=== PATIENT | female | born 1960 | race Caucasian/White ===

== ENCOUNTER → 2023-06-08 15:25 | Outpatient (REF) | payer OTHER, SELFPAY | LOC: HWWDC 15:25 | PROVIDERS: ATTENDING PHYSICIAN Family Medicine; FAMILY PHYSICIAN Family Medicine | DX: Z12.31 Encounter for screening mammogram for malignant neoplasm of breast (principal) | CPT/HCPCS: 77063; 77067 ==

== ENCOUNTER → 2023-06-15 09:43 | Outpatient (REF) | payer OTHER, SELFPAY | LOC: WDC 09:43 | PROVIDERS: ATTENDING PHYSICIAN Family Medicine | DX: R92.8 Other abnormal and inconclusive findings on diagnostic imaging of breast (principal) | CPT/HCPCS: 76642 ==

== ENCOUNTER 2024-01-03 10:20 | Emergency (ER) | payer OTHER, SELFPAY ==
[2024-01-03 10:26] VITALS: BP 167/107
[2024-01-03 10:30] LABS: Glucose - Point of Care 100 mg/dl (70-99)
[2024-01-03 10:54] LABS: % Basophils 1.1 % (0-2); % Eosinophils 2.3 % (0-6); % Immature Granulocytes 0.4 % (0-0.5); % Monocytes 6.4 % (1.7-9.3); % Neutrophils 51.8 % (42.2-75.2); Absolute Basophils 0.1 10^3/uL (0-0.2); Absolute Eosinophils 0.2 10^3/uL (0-0.7); Absolute Lymphocytes 2.7 10^3/uL (1.2-3.4); Absolute Monocytes 0.5 10^3/uL (0.1-0.6); Absolute Neutrophils 3.6 10^3/uL (1.4-6.5); Hematocrit 42.5 % (37.0-47.0); Hemoglobin 14.7 g/dL (12.0-16.0); Mean Corp Hgb Conc. 34.6 g/dL (33.0-37.0); Mean Corpuscular Hgb 31.4 pg (27.0-31.0); Mean Corpuscular Volume 90.8 fL (81.0-99.0); Mean Platelet Volume 9.8 fL (7.4-10.4); Nucleated Red Blood Cells % 0.4 %; Platelet Count 221 10^3/uL (130-400); Red Blood Cell Count 4.68 10^6/uL (4.20-5.40); Red Cell Dist. Width 11.8 % (11.5-14.5)
[2024-01-03 10:59] LABS: Urine Albumin Negative (Neg - Trace); Urine Bilirubin Negative (Negative); Urine Character Clear (Clear); Urine Color Yellow; Urine Glucose Negative (Negative); Urine Ketone Negative (Negative); Urine Leukocyte Negative (Negative); Urine Nitrite Negative (Negative); Urine Occult Blood Negative (Negative); Urine Urobilinogen Negative (Neg - 1+)
[2024-01-03 11:06] VITALS: BP 143/94
[2024-01-03 11:07] LABS: ALT (SGPT) 30 U/L (0-35); AST (SGOT) 30 U/L (14-36); Albumin 4.6 g/dl (3.5-5.0); Alkaline Phosphatase 80 U/L (38-126); Blood Urea Nitrogen 13 mg/dl (7-17); Carbon Dioxide 27 mmol/L (22-30); Chloride 104 mmol/L (98-107); Glucose 101 mg/dl (70-99); Potassium 4.2 mmol/L (3.5-5.1); Sodium 140 mmol/L (135-145); Total Bilirubin 0.6 mg/dl (0.2-1.3); Total Protein 7.2 g/dl (6.3-8.2); eGFR > 60.00
--- NOTE | 2024-01-03 11:58 | ED.CVA ---
History of Present Illness
General
Chief Complaint: CVA/TIA Symptoms
Time Seen by Provider: 01/03/24 10:34
Onset of Stroke Symptoms
Onset of symptoms known: Yes
Date of onset of symptoms: 01/03/24
Time of onset of symptoms: 09:00
History of Present Illness
History of Present Illness:
63-year-old female presents the emergency department for evaluation of abrupt onset of 'feeling abnormal' this morning while getting ready for work. She cannot recall a small block of time from this morning. She states that she remembers going to
get a shower but does not remember taking a shower, states 'I am sure I had 1'. She called her son to explain the abnormal symptoms and waited until he got to her in order to bring her to the hospital. She does note some mild nausea but no speech
problems. No chest pain or shortness of breath.
Past History
Past History
ED Past Medical History: Asthma, Psychiatric (Depression) and Other (diverticulitis, hiatal hernia)
ED Past Surgical History: and Gynecological (Tubal ligation)
Social History
Tobacco: Non-smoker
Alcohol: None
Drug: None
Personal:
Living: with family
Employment: Employed
Family History
Family History: Sudden
Review of Systems
Review of Systems
Allergies reviewed?: Yes
All Other Systems: ROS reviewed and negative except as documented in HPI and ROS
Phy Exam
Physical Exam
Physical Exam:
GEN: Well appearing, NAD, WDWN
HEENT: Oral mucosa moist, no scleral icterus, no nasal congestion
Cardiac: Regular rate
Lung: No respiratory distress, no tachypnea
MSK: No gross deformity or injuries
Skin: Good color, no pallor or jaundice, no rashes
Neuro: AO x3; CN II-XII grossly intact. BUE strength 5/5 in all dueñas, sensation intact and symmetric. BLE strength 5/5 in all dueñas, sensation intact and symmetric, normal echzsc-en-xlde and eyfr-sw-iuwd, normal gait
Psych: Calm, cooperative
Course
Orders/Labs/Results
Orders:
Orders
01/03/24 10:41
CBC/With Diff [Complete Blood Count/With Diff] Urgent
CMP [Comprehensive Metabolic Panel] Urgent
01/03/24 10:46
CT Head W/o Iv Contrast Urgent
Comment:
Reason For Exam: altered mental status
01/03/24 10:53
Urinalysis Reflex To Culture Urgent
Date Specimen was Collected: 01/03/24
Time Specimen was Collected: 10:52
Abnormal Lab Results
01/03/24 01/03/24
10:28 10:41
MCH 31.4 H pg
(27.0-31.0)
Glucose 101 H mg/dl
(70-99)
POC Glucose 100 H mg/dl
(70-99)
01/03/24 10:41
01/03/24 10:41
Vital Signs
Initial and Last Documented VS:
Initial Vital Signs
Temp Pulse Resp BP Pulse Ox
98.3 F 84 16 167/107 99
01/03/24 10:26 01/03/24 10:26 01/03/24 10:26 01/03/24 10:26 01/03/24 10:26
Last Documented Vital Signs
Temp Pulse Resp BP Pulse Ox
98.3 F 74 16 143/94 98
01/03/24 10:26 01/03/24 11:15 01/03/24 11:15 01/03/24 11:06 01/03/24 11:15
MDM/Problems Addressed
MDM/Problems Addressed:
Patient's workup is unremarkable. I do not suspect CVA as a cause, certainly could be a psychosomatic issue. Recommend primary care follow-up, no indication for admission
*Critical Care Note
Total Time (30-74mins, 75-104mins- exclusive of procedures): Not Applicable
ED Attending Note
-
Portions of this chart may have been created with voice recognition software.� Occasional wrong word or��sound alike� substitutions may have occurred due to the inherent limitations of voice recognition software.
Discharge Plan
Departure
Patient Disposition: Home (Routine Discharge)
Date of Disposition: 01/03/24
Time of Disposition: 11:58
Patient with high blood pressure during this ER visit?: No
Discharge Problem:
Transient alteration of awareness
Instructions: Delirium (Confusion) (DC)
Prescriptions:
No Action
fluoxetine 20 mg Tablet
20 mg PO DAILY
albuterol sulfate 90 mcg/actuation HFA aerosol inhaler
2 puff INHALATION R QIDPRN PRN (Reason: sob/wheezing)
calcium carb-D3-mag ox-zinc ox 333 mg-133 unit -133 mg-5 mg Tablet
1 tab PO DAILY
calcium carb-D3-mag ox-zinc ox 333 mg-133 unit -133 mg-5 mg Tablet
2 tab PO HS
acetaminophen 325 mg Tablet
650 mg PO Q4HPRN PRN (Reason: Mild Pain / Temp > 101) Qty: 20 0RF
amoxicillin-pot clavulanate 875-125 mg Tablet
1 tab PO Q12 Qty: 20 0RF
Referrals:
Lilliam Hodge PA [Family Provider] -
Stand Alone Forms: Return to Work
Activity Restrictions/Additional Instructions:
Follow up with your primary care physician particularly if symptoms reoccur
Interventions
Interventions:
*Risk Screen - Suicide Last Done: 01/03/24 12:15
*General Assessment Last Done: 01/03/24 10:40
*Neglect/Abuse Screening Last Done: 01/03/24 10:40
*ED COVID-19 Vaccine History Last Done: 01/03/24 10:40
*Nursing Disposition Last Done: 01/03/24 12:15
ED- Pulmonary Assessment Last Done: 01/03/24 10:42
ED- Neurological Assessment Last Done: 01/03/24 10:42
ED- Cardiac Assessment Last Done: 01/03/24 10:42
ED Swallowing Screen Last Done: 01/03/24 12:15
Discharge Date and Time
Discharge Date/Time: 01/03/24 13:09
Print Language: GERMAN
== END 2024-01-03 13:09 | disposition home or self-care (01) ==
LOC: EMR 10:20
PROVIDERS: Physician Assistant; EMERGENCY PHYSICIAN Student in an Organized Health Care Education/Training Program; FAMILY PHYSICIAN Family Medicine
DX: R40.4 Transient alteration of awareness (principal); J45.909 Unspecified asthma, uncomplicated
CPT/HCPCS: 99284; 70450; 80053; 81003; 82962; 85025

== ENCOUNTER → 2024-01-18 08:15 | Outpatient (REF) | payer OTHER, SELFPAY | LOC: WDC 08:15 | PROVIDERS: ATTENDING PHYSICIAN Family Medicine | DX: R92.8 Other abnormal and inconclusive findings on diagnostic imaging of breast (principal) | CPT/HCPCS: 76642 ==

== ENCOUNTER → 2024-07-29 14:23 | Outpatient (REF) | payer OTHER, SELFPAY | LOC: WDC 14:23 | PROVIDERS: ATTENDING PHYSICIAN Family Medicine | DX: Z12.31 Encounter for screening mammogram for malignant neoplasm of breast (principal); R92.8 Other abnormal and inconclusive findings on diagnostic imaging of breast | CPT/HCPCS: 76642; 77063; 77067 ==

== ENCOUNTER → 2025-01-24 13:41 | Outpatient (REF) | payer OTHER, SELFPAY | LOC: WDC 13:41 | PROVIDERS: ATTENDING PHYSICIAN Family Medicine | DX: R92.8 Other abnormal and inconclusive findings on diagnostic imaging of breast (principal) | CPT/HCPCS: 76642 ==